=== PATIENT | female | born 1970 | race Caucasian/White ===

== ENCOUNTER 2019-03-30 13:04 | Emergency (ER) | payer MEDICAID ==
[~2019-03-30] VITALS: Ht 162.6 cm; Wt 68.2 kg
[2019-03-30 13:10] VITALS: BP 98/29
[2019-03-30] MEDS ORDERED: LEVE250T28 PO (13:21)
[2019-03-30] MEDS ORDERED: LEVE500T53 PO (13:21)
[2019-03-30] MEDS ORDERED: DIVA500T2 PO (13:21)
== END 2019-03-30 14:24 | disposition home or self-care (01) ==
LOC: ED 14:12
DX: R56.9 Unspecified convulsions (principal); Z76.0 Encounter for issue of repeat prescription
CPT/HCPCS: 99283

== ENCOUNTER 2019-04-09 11:36 | Emergency (ER) | payer MEDICAID ==
[~2019-04-09] VITALS: Ht 160 cm; Wt 67.6 kg
[~2019-04-09 11:36] MED LIST: DIVA500T2 PO; LEVE250T28 PO; LEVE500T53 PO
[2019-04-09 11:37] VITALS: BP 114/76
== END 2019-04-09 12:23 | disposition home or self-care (01) ==
LOC: ED 12:20
DX: R56.9 Unspecified convulsions (principal); Z76.0 Encounter for issue of repeat prescription
CPT/HCPCS: 99283

== ENCOUNTER 2019-04-18 10:21 | Emergency (ER) | payer MEDICAID ==
[~2019-04-18] VITALS: Ht 160 cm; Wt 67.7 kg
[2019-04-18 11:12] VITALS: BP 93/64
--- NOTE | 2019-04-18 11:15 | NUR ---
PT PRESENTS TO ED WITH C/O COUGH AND CONGESTION SINCE LAST NIGHT, CP AND SOB WITH COUGH. PT REFUSED FLU SWAB AND EKG IN TRIAGE. PT SEEN AND EXAMINED BY CHRISTIANNE MOON, PT GIVEN DC INSTRUCTIONS AND SCRIPT, EDCUATED REGARDING DC RX. PT AMB TO DC DESK WITH STEADY, NADN AT DC.
== END 2019-04-18 11:22 ==
LOC: ED 11:02
DX: J06.9 Acute upper respiratory infection, unspecified (principal); F17.210 Nicotine dependence, cigarettes, uncomplicated
CPT/HCPCS: 71046; 99283

== ENCOUNTER 2020-11-14 00:09 | Emergency (ER) | payer MEDICAID ==
[~2020-11-14] VITALS: Ht 160 cm; Wt 66.1 kg
[2020-11-14 00:12] VITALS: BP 125/55
[2020-11-14] MEDS ORDERED: NAPROXEN 500 MG TABLET PO ONE (00:30)
[2020-11-14] MEDS ORDERED: NAPROXEN 500 MG TABLET ONE (00:47)
--- NOTE | 2020-11-14 00:52 | NUR ---
report to [facility]
--- NOTE | 2020-11-14 01:00 | NUR ---
report from [facility]
== END 2020-11-14 02:24 | disposition home or self-care (01) ==
LOC: ED 01:45
DX: S16.1XXA Strain of muscle, fascia and tendon at neck level, initial encounter (principal); S30.0XXA Contusion of lower back and pelvis, initial encounter; W01.0XXA Fall on same level from slipping, tripping and stumbling without subsequent striking against object, initial encounter; Y93.89 Activity, other specified; Y92.89 Other specified places as the place of occurrence of the external cause; Y99.8 Other external cause status; F17.200 Nicotine dependence, unspecified, uncomplicated
CPT/HCPCS: 72110; 72220; 99284

== ENCOUNTER 2020-11-16 03:31 | Emergency (ER) | payer MEDICAID ==
[~2020-11-16] VITALS: Ht 161.3 cm; Wt 67.0 kg
[2020-11-16 03:35] VITALS: BP 116/53
--- NOTE | 2020-11-16 03:57 | NUR ---
PT PRESENTS TO ED WITH BACK PAIN FROM A PREVIOUS FALL. PT RESTING ON GURNEY, ERP AT BEDSIDE.
[2020-11-16] MEDS ORDERED: LIDODERM 5% PATCH TD ONE ×2 (04:00→04:01)
[2020-11-16] MEDS ORDERED: KETOROLAC 30 MG/1 ML IM ONE (04:00)
[2020-11-16] MEDS ORDERED: METHOCARBAMOL 750 MG TABLET PO ONE (04:00)
[2020-11-16] MEDS ORDERED: KETOROLAC 60 MG/2 ML ONE (04:01)
[2020-11-16] MEDS ORDERED: METHOCARBAMOL 750 MG TABLET ONE (04:01)
--- NOTE | 2020-11-16 04:26 | NUR ---
Patient given discharge instructions and they have confirmed that they understand the instructions. Patient ambulatory with steady gait.
== END 2020-11-16 04:28 | disposition home or self-care (01) ==
LOC: ED 03:45
DX: S39.012A Strain of muscle, fascia and tendon of lower back, initial encounter (principal); S30.0XXA Contusion of lower back and pelvis, initial encounter; F17.200 Nicotine dependence, unspecified, uncomplicated; W18.30XA Fall on same level, unspecified, initial encounter; Y93.89 Activity, other specified; Y92.89 Other specified places as the place of occurrence of the external cause; Y99.8 Other external cause status
CPT/HCPCS: 96372; 99283; J1885